=== PATIENT | female | born 1960 | race Native Hawaiian/Other Pacific Islander ===

== ENCOUNTER 2016-09-24 12:34 | Day surgery (SDC) | payer OTHER ==
[2016-09-24] MEDS ORDERED: LIDOCAINE 1% 5 ML SDV ONE (13:20)
[2016-09-24] MEDS ORDERED: BUPIVACAINE 0.5% 30 ML SDV ONE (13:51)
[2016-09-24] MEDS ORDERED: BUPIVACAINE/EPI 0.5% 30 ML SDV ONE (13:51)
[2016-09-24] MEDS ORDERED: SKIN ADHESIVE (DERMABOND) 1 EACH TP ONE (13:53)
[2016-09-24] MEDS ORDERED: fentaNYL 100 MCG/2 ML INJ ONE (13:54)
[2016-09-24] MEDS ORDERED: PROPOFOL 200 MG/20 ML VIAL ONE ×2 (13:55)
[2016-09-24] MEDS ORDERED: LIDOCAINE 2% 100 MG/5 ML SYR IVP ONE (13:57)
[2016-09-24] MEDS ORDERED: MIDAZOLAM 2 MG/2 ML VIAL ONE (13:58)
[2016-09-24] MEDS ORDERED: HYDROmorphONE/DILAUDID 2 MG/ML INJ ONE (14:41)
[2016-09-24] MEDS ORDERED: KETOROLAC 30 MG/1 ML SDV ONE (14:56)
[2016-09-24] MEDS ORDERED: DEXAMETHASONE 4 MG/ML VIAL ONE (14:57)
[2016-09-24] MEDS ORDERED: ONDANSETRON 4 MG/2 ML VIAL ONE ×3 (14:57→16:09)
--- NOTE | 2016-09-24 15:29 | GOP ---
[f rep st] OPERATIVE REPORT DATE OF OPERATION: SURGEON: Pato Schafer MD HOME AND SCHOOL VISITOR: None. ANESTHESIA: General LMA, as well as local anesthetic. ANESTHESIOLOGIST: Dr. Arboleda PREOPERATIVE DIAGNOSIS: POSTOPERATIVE DIAGNOSIS: PROCEDURE PERFORMED: FINDINGS: SPECIMENS: Left breast tissue, long stitch lateral, short stitch superior, from the inferior border to permanent pathology. INDICATIONS: This is a 56-year-old, who presents with a cancer of the left breast. She had a previo us excisional biopsy and had a positive margin of 3 mm. She is here for reexcision of breast cancer with margins. DESCRIPTION OF PROCEDURE: Patient was brought into the operating room. After induction of IV sedati on, she had general LMA anesthesia established. Local anesthetic was infused in the skin and subcuta neous tissue after prepping the breast with chlorhexidine. Timeout procedure was performed according to institutional standards. Curvilinear incision was made on the medial aspect of the breast, medial inferior aspect, and the pre vious seroma cavity was aspirated. The area of previous surgery was excised from the inferolateral b order to the inferomedial, taking the inferior and superior borders as well. A fiducial that had bee n brought into the field of dissection was replaced in the inferolateral aspect of the breast for pos toperative radiation therapy purposes. Hemostasis was achieved. This specimen was marked with a agustina g stitch lateral, short stitch. Closed in 2 layers using 3-0 Polysorb for the deep dermis and 4-0 Monocryl for the skin. Dermabond w as applied. The patient was awakened and taken to the recovery room in stable condition. No immedia te complications. /[id number]/MODL
[2016-09-24] MEDS ORDERED: PROMETHAZINE HCL 25 MG/ML INJ ONE (16:08)
== END 2016-09-24 16:50 | disposition home or self-care (01) ==
LOC: FSGY 12:34 → EDSTATUS 14:00 → FSGY 16:50
PROVIDERS: ATTEND Surgery
PROC: 0HBU0ZZ Excision of Left Breast, Open Approach (ICD-10-PCS; principal; 2016-09-24 14:00)
DX: C50.812 Malignant neoplasm of overlapping sites of left female breast (principal)
CPT/HCPCS: J1100; J1170; J1885; J2001; J2250; J2405; J2550; J2704; J3010

== ENCOUNTER → 2017-02-25 | Outpatient (CLI) | payer OTHER | LOC: BRMIMAGING 14:40 | PROVIDERS: ATTEND Internal Medicine Hematology & Oncology | DX: M81.0 Age-related osteoporosis without current pathological fracture (principal) ==

== ENCOUNTER → 2017-07-16 | Outpatient (CLI) | payer OTHER | LOC: FIMAGING 10:07 | PROVIDERS: ATTEND Surgery | DX: Z12.31 Encounter for screening mammogram for malignant neoplasm of breast (principal) | CPT/HCPCS: G0202 ==

== ENCOUNTER → 2018-07-19 | Outpatient (CLI) | payer OTHER | LOC: FIMAGING 14:54 | PROVIDERS: ATTEND Surgery | DX: Z12.31 Encounter for screening mammogram for malignant neoplasm of breast (principal) ==